=== PATIENT | female | born 1990 | race African-American/Black ===

== ENCOUNTER 2017-02-21 12:43 | Emergency (ER) | payer OTHER ==
[~2017-02-21] VITALS: Ht 157.5 cm; Wt 55.0 kg
[~2017-02-21 12:43] MED LIST: PREN-88 PO
[2017-02-21 16:18] LABS: CLARITY URINE CLEAR (CLEAR); COLOR URINE YELLOW (YELLOW); KETONES URINE NEGATIVE (NEGATIVE); LEUKOCYTE ESTERASE URINE TRACE (NEGATIVE); NITRITE URINE NEGATIVE (NEGATIVE); OCCULT BLOOD URINE NEGATIVE (NEGATIVE); PROTEIN URINE NEGATIVE (NEGATIVE); SPECIFIC GRAVITY URINE 1.013 (1.005-1.030); UROBILINOGEN URINE 0.2 E.U./dL (0.2-1.0)
[2017-02-21 16:25] LABS: BASOPHILS % 0.5 % (0.0-2.0); EOSINOPHILS % 0.7 % (0.0-5.0); HEMATOCRIT. 33.5 % (36.0-48.0); HEMOGLOBIN. 11.5 g/dL (12.0-16.0); LYMPHOCYTES % 30.3 % (20.0-50.0); MEAN CORPUSCULAR HEMOGLOBIN 28.2 pg (28.0-32.0); MEAN CORPUSCULAR VOLUME 81.9 fL (81.0-99.0); MEAN PLATELET VOLUME 7.3 fl (7.4-10.4); MONOCYTES % 8.4 % (2.0-8.0); NEUTROPHILS % 60.1 % (40.0-76.0); PLATELET 247 x1000/uL (130-400); RED BLOOD CELL COUNT 4.09 mill/uL (4.2-5.4); RED CELL DISTRIBUTION WIDTH 13.5 % (11.6-14.6)
[2017-02-21 16:48] LABS: CARBON DIOXIDE 27 mEq/L (21-32); CHLORIDE 103 mEq/L (98-107)
[2017-02-21 16:55] LABS: B-HCG QUANTITATIVE 108610 mIU/mL (<3)
[2017-02-21 17:13] VITALS: BP 105/59
== END 2017-02-21 18:04 | disposition home or self-care (01) ==
LOC: ER 15:28
DX: O23.41 Unspecified infection of urinary tract in pregnancy, first trimester (principal); N39.0 Urinary tract infection, site not specified; M54.5 Low back pain; Z3A.08 8 weeks gestation of pregnancy; Y08.89XA Assault by other specified means, initial encounter; Y93.89 Activity, other specified; Y92.89 Other specified places as the place of occurrence of the external cause; Y99.8 Other external cause status
CPT/HCPCS: 36415; 76801; 80048; 81001; 84702; 85025; 86850; 86900; 99285

== ENCOUNTER 2017-04-30 18:49 | Emergency (ER) | payer MEDICAID, OTHER ==
[~2017-04-30] VITALS: Ht 157.5 cm; Wt 59.0 kg
[2017-04-30 18:55] VITALS: BP 106/65
== END 2017-05-01 01:02 | disposition left against medical advice (07) ==
LOC: ER 18:49
DX: O26.892 Other specified pregnancy related conditions, second trimester (principal); R10.9 Unspecified abdominal pain; Z3A.18 18 weeks gestation of pregnancy

== ENCOUNTER 2017-09-11 08:59 | Observation (INO) | payer MEDICAID ==
[2017-09-11] MEDS ORDERED: ACYC200C PO (09:14)
[2017-09-11 10:08] LABS: CLARITY URINE CLOUDY (CLEAR); COLOR URINE YELLOW (YELLOW); KETONES URINE NEGATIVE (NEGATIVE); LEUKOCYTE ESTERASE URINE 3+ (NEGATIVE); NITRITE URINE NEGATIVE (NEGATIVE); OCCULT BLOOD URINE NEGATIVE (NEGATIVE); PH URINE 7.5 (4.5-8.0); PROTEIN URINE NEGATIVE (NEGATIVE)
== END 2017-09-11 10:44 | disposition home or self-care (01) ==
LOC: L&D 08:59
PROVIDERS: ADMIT Obstetrics & Gynecology; ATTEND Obstetrics & Gynecology
DX: O99.89 Other specified diseases and conditions complicating pregnancy, childbirth and the puerperium (principal); M54.5 Low back pain; Z3A.37 37 weeks gestation of pregnancy
CPT/HCPCS: 81001; 87086; 99281; G0378

== ENCOUNTER 2017-12-29 16:37 | Emergency (ER) | payer MEDICAID, OTHER ==
[~2017-12-29] VITALS: Ht 160 cm; Wt 66.0 kg
[~2017-12-29 16:37] MED LIST changes: +ACYC200C PO
[2017-12-29 18:37] VITALS: BP 112/82
[2017-12-29] MEDS ORDERED: PEN G BENZ/PEN G PROCAINE CR 1.2 MMU/2 ML IM ONE (18:45)
[2017-12-29] MEDS ORDERED: IBUPROFEN 600MG TABLET PO ONE (18:45)
[2017-12-29] MEDS ORDERED: PENICILLIN G BENZATHINE 1,200,000 UNITS/2ML SYR IM NR (19:00)
== END 2017-12-29 19:22 | disposition home or self-care (01) ==
LOC: ER 17:12
DX: J03.90 Acute tonsillitis, unspecified (principal)
CPT/HCPCS: 87430; 96372; 99283; J0558; J0561